=== PATIENT | male | born 1945 | race Caucasian/White ===

== ENCOUNTER 2025-02-15 10:10 | Inpatient (IN) | payer OTHER ==
[~2025-02-15] VITALS: Ht 167.6 cm; Wt 56.6 kg
[2025-02-15 13:11] VITALS: BP 122/82
[2025-02-15] MEDS ORDERED: TORSE20 PO (13:12)
[2025-02-15] MEDS ORDERED: HYDCHL25 PO (13:12)
--- NOTE | 2025-02-15 13:49 | NUR ---
THIS RN CALLED TO NOTIFY OF PT'S ARRIVAL AND RECEIVE ORDERS.
[2025-02-15] MEDS ORDERED: Midazolam HCl 1MG / ML 2ML Vial ONE (14:27)
[2025-02-15] MEDS ORDERED: NS 500 ML IV ONE (14:28)
[2025-02-15] MEDS ORDERED: FentaNYL Citrate 50 MCG/ML 2 ML Injection ONE (14:28)
[2025-02-15] MEDS ORDERED: Heparin Sodium 1000 Units/ML 10ML MDV ONE (14:29)
[2025-02-15] MEDS ORDERED: NS 250 ML IV ONE (14:29)
--- NOTE | 2025-02-15 14:36 | NUR ---
PT TO DEVELOPER ARCHITECT FOR PERMACATH PLACEMENT.
[2025-02-15] MEDS ORDERED: Heparin Sodium 10,000 Units/ML 1ML MDV ONE (15:27)
[2025-02-15 15:47] VITALS: BP 149/84
--- NOTE | 2025-02-15 15:58 | NUR ---
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 VITALS TAKEN AND STABLE. PT PROVIDED W/ FOOD AND DRINK. TELE PLACED. CALL LIGHT WITHIN REACH.
[2025-02-15 17:22] LABS: Prothrombin Time Results 12.4 Sec (9.7-11.5)
[2025-02-15] MEDS ORDERED: Calcium Acetate 667 MG Gel Cap PO SCH (17:30)
[2025-02-15 17:39] LABS: Albumin, Blood 3.0 g/dL (3.4-5.0); Anion Gap 8 mmol/L (3-11); Blood Urea Nitrogen 107 mg/dL (8-24); CO2, Blood 25 mmol/L (21-32); Calcium, Blood 9.3 mg/dL (8.5-10.1); Chloride, Blood 109 mmol/L (98-108); Creatinine, Blood 9.34 mg/dL (0.60-1.20); Glucose, Blood 119 mg/dL (70-99); Phosphorus, Blood 5.7 mg/dL (2.5-4.9); Potassium, Blood 3.7 mmol/L (3.5-5.5); Sodium, Blood 138 mmol/L (136-145)
--- NOTE | 2025-02-15 17:55 | NUR ---
SHIFT SUMMARY PT DIRECT ADMIT FROM [facility]. PT A&OX4, VSS, AMB IND, TOLERATING PO, VOIDING, AND DENIED PAIN. QUIJANO REMAINS IN PLACE AND PATENT. QUIJANO PLACED AT [facility] FOR RETENTION. PERMACATH PLACED THIS AFTERNOON. CRIT LAB CREAT OF 9.34. THIS RN NOTIFIED . PLAN FOR TRANSFER BACK TO [facility] TOMORROW. CALL LIGHT WITHIN REACH AND PT ABLE TO MAKE NEEDS KNOWN.
[2025-02-15 18:12] VITALS: BP 146/82
[2025-02-15 19:07] VITALS: BP 153/84
[2025-02-15 21:24] VITALS: BP 149/82
--- NOTE | 2025-02-15 21:39 | NUR ---
TELEMETRY NURSE NOTIFIED BY PRACTICE COORDINATOR THAT PT WAS HAVING ST ELEVATION. RN CHECKED VITALS AND PT DENIED ANY CHEST PAIN, SOB, WEAKNESS OR DIZZINESS. PROVIDER NOTIFIED AND HE STATED THAT DUE TO PATIENTS HISTORY OF HAVING A BUNDLE BRANCH BLOCK ON TELEMETRY HE IS NOT CONCERNED AT THIS TIME AND TO MONITOR FOR CHEST PAIN. THE PRACTICE COORDINATOR ALSO NOTED THAT HE WAS HAVING ST ELEVATION EARLIER AND THE PARAMETERS WERE CHANGED AND THE PATIENTS WAS NOW GOING ABOVE THOSE PARAMETERS.
[2025-02-16] VITALS: BP 141/78
[2025-02-16 03:47] VITALS: BP 152/91
--- NOTE | 2025-02-16 04:30 | NUR ---
SUMMARY: PT AOX4, ON ROOM AIR, ON TELE RUNNING NSR. HAD AN EVENT OF ST ELEVATION PER IRRIGATOR BUT PROVIDER WAS NOT CONCERNED PT HAS A BBB. PT HAS HAD NO CHEST PAIN OVER NIGHT. QUIJANO STILL IN PLACE AND DRAINING APPROPRIATELY. PT AGREEABLE TO [facility] AND QUIJANO CARE THIS AM. PLAN IS TO TRANSFER BACK TO [place] TODAY.
[2025-02-16 05:09] LABS: Albumin, Blood 2.6 g/dL (3.4-5.0); Anion Gap 11 mmol/L (3-11); Blood Urea Nitrogen 117 mg/dL (8-24); CO2, Blood 22 mmol/L (21-32); Calcium, Blood 8.5 mg/dL (8.5-10.1); Chloride, Blood 108 mmol/L (98-108); Glucose, Blood 94 mg/dL (70-99); Phosphorus, Blood 6.2 mg/dL (2.5-4.9); Potassium, Blood 3.7 mmol/L (3.5-5.5); Sodium, Blood 137 mmol/L (136-145)
[2025-02-16 05:12] LABS: Creatinine, Blood 9.28 mg/dL (0.60-1.20)
[2025-02-16 08:08] VITALS: BP 152/80
[2025-02-16] MEDS ORDERED: Polyethylene Glycol 3350 17 gm PO SCH (09:00)
[2025-02-16 10:39] VITALS: BP 138/82
[2025-02-16] MEDS ORDERED: LOSARTAN POTAS100 M1 PO (11:20)
[2025-02-16] MEDS ORDERED: DOXA4 PO (11:20)
[2025-02-16] MEDS ORDERED: NITR.4SL SL (11:20)
--- NOTE | 2025-02-16 15:14 | NUR ---
DAY SUMMARY NO ACUTE CHANGES THIS SHIFT, A&OX4, INDEP IN ROOM, DENIES PAIN, VSS, HOME METOP DOSE STARTED THIS SHIFT, WAITING FOR XFER TO [place] [facility], WILL CONT TO MONITOR.
[2025-02-16 16:18] VITALS: BP 132/69
[2025-02-16 16:22] VITALS: BP 132/69
--- NOTE | 2025-02-16 16:23 | NUR ---
REPORT CALLED TO VANESSA @ [facility], PT NOTIFIED OF BED AVAILABILITY
--- NOTE | 2025-02-16 17:42 | NUR ---
RYNE PT TRANSPORTED VIA [facility] TO [facility], ALL BELONGINGS SENT WITH TRANSPORTLIZETTE IN PLACE.
== END 2025-02-16 17:34 | disposition short-term general hospital (02) | DRG 291 ==
LOC: MEDS 10:10
PROVIDERS: Internal Medicine; ADMIT Hospitalist
PROC: 0JH60XZ Insertion of Tunneled Vascular Access Device into Chest Subcutaneous Tissue and Fascia, Open Approach (ICD-10-PCS; principal; 2025-02-15)
PROC: 02HV33Z Insertion of Infusion Device into Superior Vena Cava, Percutaneous Approach (ICD-10-PCS; 2025-02-15)
DX: I13.2 Hypertensive heart and chronic kidney disease with heart failure and with stage 5 chronic kidney disease, or end stage renal disease (principal); N18.6 End stage renal disease; J81.1 Chronic pulmonary edema; I50.42 Chronic combined systolic (congestive) and diastolic (congestive) heart failure; Z66 Do not resuscitate; Z99.2 Dependence on renal dialysis; N40.0 Benign prostatic hyperplasia without lower urinary tract symptoms; Z86.73 Personal history of transient ischemic attack (TIA), and cerebral infarction without residual deficits; Z95.0 Presence of cardiac pacemaker; Z79.899 Other long term (current) drug therapy; Z88.8 Allergy status to other drugs, medicaments and biological substances
CPT/HCPCS: 36415; 76937; 80069; 85610; 99152; 99153; A9270; C1750; C1769; C1894; J1644; J2250; J3010; J7040; J7050; Q9967

== ENCOUNTER 2025-06-09 08:00 | Day surgery (SDC) | payer OTHER ==
[2025-06-09] VITALS (11 sets, daily range): BP systolic 141–158; BP diastolic 88–101
[~2025-06-09] VITALS: Ht 167.6 cm; Wt 64.9 kg
[~2025-06-09 08:00] MED LIST: AMLO5 PO; CALC.25 PO; CARV25 PO; DOXA4 PO; FERSU300 PO; FURO40 PO; HYDCHL25 PO; LOSARTAN POTAS100 M1 PO; NITR.4SL SL; ROSUVASTATIN CA10 MG PO; SODBIC650 PO; TORSE20 PO; [UNRECOGNIZED DRUG - OTHER] PO
[2025-06-09] MEDS ORDERED: NS 2,000 ML IV ONE (10:24)
[2025-06-09] MEDS ORDERED: FentaNYL Citrate 50 MCG/ML 2 ML Injection ONE ×2 (10:24→11:01)
[2025-06-09] MEDS ORDERED: Midazolam HCl 1MG / ML 2ML Vial ONE ×3 (10:25→11:32)
[2025-06-09] MEDS ORDERED: Heparin Sodium 1000 Units/ML 10ML MDV ONE (10:26)
[2025-06-09] MEDS ORDERED: NS 1,000 ML IV ONE (10:35)
--- NOTE | 2025-06-09 12:57 | NUR ---
pt back from lab. site soft and non-tender per pt. mild sanguineous exudate. no hematoma noted.
--- NOTE | 2025-06-09 14:43 | NUR ---
PT AND SPOUSE VERBALIZE D/C INSTRUCITONS. STS HAS DIALYSIS TRAINGING AT [facility] IN [place] ALREADY SCHEDULED. PT SITTING UP EATING. ALERT AND ORIENTED.
--- NOTE | 2025-06-09 15:01 | NUR ---
ABD FIRMER THAN WHEN FIRST TO RECOVERY ROOM. PT UP WALKING, USING RESTOOM. DR LANDAVERDE NOTIFIED. WILL REASSES.
--- NOTE | 2025-06-09 15:18 | NUR ---
dr huang informed of abd firmness and minimal output. pt also unable to urinate at this time. pt ambulated around department per dr huang's orders. pd output remains minimal at about 30cc. dr huang made aware. ct ordered. pt taken to ct via wc.
--- NOTE | 2025-06-09 15:29 | NUR ---
PT TO IMAGING.
--- NOTE | 2025-06-09 15:50 | NUR ---
pt sitting up in bed. denies any complaints at this time. denies need to urinate. abd continues to feel mildly firm. pt reports mild tenderness upon palpation.
--- NOTE | 2025-06-09 16:16 | NUR ---
pt given water and tea per request.
--- NOTE | 2025-06-09 16:39 | NUR ---
pt attempting to urinate.
--- NOTE | 2025-06-09 16:54 | NUR ---
pt able to urinate. pt reports abd pain gone and denies any other complaints at this time.
--- NOTE | 2025-06-09 17:22 | NUR ---
dr huang at bedside and is ok w/ pt's dc. pt given dc instructions and verbalized understanding. pt informed to call grayson and/or dr huang's office for any questions or concerns. pt denies any complaints/pain/tenderness. no bleeding/hematoma noted. iv out. pt chnaged and taken to [facility]. family with pt sts they will drive pt home.
== END 2025-06-09 17:30 | disposition home or self-care (01) ==
LOC: MHTC 08:00
DX: I12.0 Hypertensive chronic kidney disease with stage 5 chronic kidney disease or end stage renal disease (principal); N18.6 End stage renal disease; I44.7 Left bundle-branch block, unspecified; D69.59 Other secondary thrombocytopenia; N40.0 Benign prostatic hyperplasia without lower urinary tract symptoms; I42.9 Cardiomyopathy, unspecified; I50.9 Heart failure, unspecified; I27.20 Pulmonary hypertension, unspecified; I44.2 Atrioventricular block, complete; E78.2 Mixed hyperlipidemia; I48.91 Unspecified atrial fibrillation; Z86.718 Personal history of other venous thrombosis and embolism; Z86.73 Personal history of transient ischemic attack (TIA), and cerebral infarction without residual deficits; Z87.891 Personal history of nicotine dependence; Z79.899 Other long term (current) drug therapy; Z88.8 Allergy status to other drugs, medicaments and biological substances; Z99.2 Dependence on renal dialysis
CPT/HCPCS: 49418; 74176; 76937; 99152; 99153; C1750; C1769; C1887; C1894; J1644; J2250; J3010; J7030; Q9967

== ENCOUNTER 2025-07-02 02:16 | Emergency (ER) | payer OTHER ==
[~2025-07-02] VITALS: Ht 167.6 cm; Wt 60.8 kg
[2025-07-02 05:16] LABS: BASOPHILS ABSOLUTE AUTO 0.09 K/mm3 (0.00-0.23); BASOPHILS PERCENT AUTO 1 % (0-2); EOSINOPHILS ABSOLUTE AUTO 0.63 K/mm3 (0.00-0.68); EOSINOPHILS PERCENT AUTO 6 % (0-6); Hematocrit 29.0 % (37.0-53.0); Hemoglobin 9.6 g/dL (13.5-17.5); IMMATURE GRAN ABSOLUTE AUTO 0.05 K/mm3 (0.00-0.10); IMMATURE GRAN PERCENT AUTO 1 % (0-1); LYMPHOCYTES ABSOLUTE AUTO 1.07 K/mm3 (0.84-5.20); LYMPHOCYTES PERCENT AUTO 10 % (21-46); MONOCYTES ABSOLUTE AUTO 1.15 K/mm3 (0.16-1.47); MONOCYTES PERCENT AUTO 11 % (4-13); Mean Corpuscular HGB Conc 33.1 g/dL (31.5-36.5); Mean Corpuscular Volume 88 fL (80-100); NEUTROPHILS ABSOLUTE AUTO 7.36 K/mm3 (1.96-9.15); NEUTROPHILS PERCENT AUTO 71 % (41-73); NRBC ABSOLUTE 0.00 K/mm3 (0.00-0.02); NRBC Auto 0.0 /100 WBC (0.0-0.2); Platelet Count 426 K/mm3 (150-400); RDW Coefficient Variation 13.0 % (11.7-14.2); RDW Standard Deviation 41.7 fL (35.1-46.3)
[2025-07-02 05:59] LABS: Alanine Aminotransfer (ALT/SGP 10.0 U/L (12-78); Albumin, Blood 3.1 g/dL (3.4-5.0); Albumin/Globulin Ratio 1.0 (0.8-1.8); Anion Gap 15.0 mmol/L (3-11); Aspartate Aminotrans (AST/SGOT 6.0 U/L (12-37); Bilirubin, Total 0.4 mg/dL (0.1-1.0); Blood Urea Nitrogen 113.0 mg/dL (8-24); CO2, Blood 21.0 mmol/L (21-32); Calcium, Blood 8.6 mg/dL (8.5-10.1); Chloride, Blood 106.0 mmol/L (98-108); Creatinine, Blood 7.99 mg/dL (0.60-1.20); Globulin, Blood 3.1 g/dL (2.2-4.0); Glucose, Blood 93.0 mg/dL (70-99); Potassium, Blood 3.6 mmol/L (3.5-5.5); Sodium, Blood 138.0 mmol/L (136-145); Total Protein, Blood 6.2 g/dL (6.4-8.2)
[2025-07-02 08:58] LABS: Source, Urine Clean Catch
[2025-07-02 09:00] LABS: Bilirubin, Urine Neg (Neg); Color, Urine Yellow (P-Yellow); Glucose Qualitative, Urine 1+ (Neg); Ketones, Urine Neg (Neg); Leukocyte Esterase, Urine 3+ (Neg); Protein, Urine 3+ (Neg); Specific Gravity, Urine 1.015 (1.003-1.022); Urobilinogen, Urine NORM (Normal)
[2025-07-02 09:08] LABS: White Blood Cells, Urine TNTC /hpf (0-5)
[2025-07-02] MEDS ORDERED: CEPH500 PO (09:29)
[2025-07-02] MEDS ORDERED: CefTRIAXone Sodium 1,000 MG in NS 50 ML IV ONE (09:30)
== END 2025-07-02 10:04 | disposition home or self-care (01) ==
LOC: ER 02:16
PROVIDERS: Emergency Medicine
DX: N39.0 Urinary tract infection, site not specified (principal)
CPT/HCPCS: 74177; 80053; 81001; 85025; 96374-59; 99284-25; J0696; Q9967